=== PATIENT | male | born 1985 | race Two or more races ===

== ENCOUNTER 2021-03-15 19:15 | Emergency (ER) | payer BC ==
[2021-03-15 19:57] VITALS: BP 145/103; PULSE 102; TEMP 102.1; BMI 28.1
[2021-03-17 20:07] LABS: SARS-CoV-2 NAA Detected (Not Detected)
== END 2021-03-15 20:25 | disposition home or self-care (01) ==
LOC: SUPCPDRO 19:15 → FER 19:15
DX: B34.9 Viral infection, unspecified (principal)
CPT/HCPCS: 99283-25; C9803; U0003; U0005